=== PATIENT | female | born 1985 | race Caucasian/White ===

== ENCOUNTER 2024-06-15 12:10 | Emergency (ER) | payer OTHER, SELFPAY ==
[2024-06-15 12:25] VITALS: BP 120/74; PULSE 80; RESP 16; TEMP 37.1; O2SAT 100
--- NOTE | 2024-06-15 12:50 | ED_ITS ---
HPI - URI/Sore Throat General Chief Complaint: Upper Respiratory Infection Stated Complaint: cold symptoms Time Seen by Provider: 06/15/24 12:50 Source: patient and RN notes reviewed Mode of arrival: ambulatory Limitations: no limitations History of Present Illness HPI Narrative: 38 y/o female presented for c/o nasal congestion, sinus pressure, ear fullness, and cough x2 weeks. Endorses dizziness, even while sleeping. Taking otc meds without relief. Denies sob, wheezing,n/v/d/f/c. MD elicited complaint: cough Related Data Allergies Allergy/AdvReac Type Severity Reaction Status Date / Time prednisone Allergy Unknown Unknown Verified 06/15/24 12:49 Review of Systems Review of Systems: per HPI Exam Narrative: GENERAL: mildly Ill-appearing, nontoxic no acute distress. EYES: PERRLA, conjunctivae clear ENT: Mucous membranes moist. TM pearly christina with dull light reflex bilaterally; no tragal tenderness. Oropharynx not erythematous without lesions or exudate, no drooling, no hoarseness, no trismus, uvula midline. No tripod positioning, muffled voice, soft palate or pharyngeal wall bulging NECK: Supple. No lymphadenopathy CHEST: Clear to auscultation, breath sounds equal. No wheezing, rhonchi, rales, or stridor. No respiratory distress, speaks in full sentences. HEART: Regular rate and rhythm. No murmur heard. SKIN: Warm, dry, no rash. NEURO: Alert and oriented x3. PSYCH: Normal mood and affect Course Course Emergency Course: Patient is aware of diagnosis, understands and agrees to treatment plan. Anticipatory guidance given. Patient agrees to follow-up as directed and is aware of reasons to seek care at the emergency department. Portions of this record may have been created with voice recognition software Level of Care: Express Care Visit Vital Signs Vital signs: Vital Signs Temperature 98.7 F 06/15/24 12:25 Pulse Rate 80 06/15/24 12:25 Respiratory Rate 16 06/15/24 12:25 Blood Pressure 120/74 06/15/24 12:25 Pulse Oximetry 100 06/15/24 12:25 Oxygen Delivery Room Air 06/15/24 12:25 Temperature 98.7 F 06/15/24 12:25 Pulse Rate 80 06/15/24 12:25 Respiratory Rate 16 06/15/24 12:25 Blood Pressure 120/74 06/15/24 12:25 Pulse Oximetry 100 06/15/24 12:25 Oxygen Delivery Room Air 06/15/24 12:25 reviewed MDM - URI/Sore Throat MDM Narrative Medical decision making narrative: Flu and COVID negative Discussed physical exam findings. Advised supportive measures and signs/symptoms to go to the ER. Pt is appropriate for outpt treatment and f/u. Differential Diagnosis Differential diagnosis: Likely upper respiratory infection, otitis media, sinusitis, viral infection, bronchitis, influenza and pharyngitis Lab Data Labs: Lab Results 06/15/24 Range/Units 12:51 POC Influenza A Ag Negative (Negative) POC Influenza B Ag Negative (Negative) POC SARS CoV-2 Ag Negative (Negative) Discharge Plan Discharge Clinical Impression: Upper respiratory infection Qualifiers: URI type: unspecified URI Qualified Code(s): J06.9 - Acute upper respiratory infection, unspecified Patient Disposition: Home, Self-Care Condition: Stable Instructions: Antibiotic Form, Rhinosinusitis (ED) Additional Instructions: Recommend Flonase spray and Zyrtec (or Claritin/[place]) over the counter Cough syrup may cause drowsiness; avoid driving or take it at night time. Tylenol 1000mg every 8 hours as needed for pain Symptomatic treatment includes: rest, fluids, and increase humidity of the air at home. Follow up with your primary care provider in 1 week. Go to the ER for worsening symptoms or concerns. Patient Language: Dominican Prescriptions: New amoxicillin-pot clavulanate 875-125 mg tablet 1 tablet PO Q12H 7 Days Qty: 14 0RF Follow-up/Referrals: Kristy,Maurizio Dominguez MD [Primary Care Provider] - Time of Disposition: 13:25
[2024-06-15 12:53] LABS: EDCOVIDSCREEN Negative (Negative); EDINFLUASCREEN Negative (Negative); EDINFLUBSCREEN Negative (Negative)
== END 2024-06-15 13:31 | disposition home or self-care (01) ==
PROVIDERS: Emergency Provider Nurse Practitioner Family; PCP Family Medicine
DX: J06.9 Acute upper respiratory infection, unspecified (principal); Z20.822 Contact with and (suspected) exposure to COVID-19
CPT/HCPCS: 87426; 87804; 99213; G0463

== ENCOUNTER 2025-06-19 09:16 | Outpatient (CLI) | payer OTHER, SELFPAY ==
--- NOTE | ~2025-06-19 | MMUS_ITS ---
EXAMINATION: MM diagnostic marilin BI w olu, US breast BI limited HISTORY: Palpable abnormality on the left. Scarring in the lateral left breast from pediatric lung surgery. TECHNIQUE: Craniocaudal and mediolateral oblique 3-D tomosynthesis images were obtained and synthetic 2-D images were generated. CAD analysis was submitted and interpreted. Grayscale sonography over the area(s) of interest with color Doppler if there is a finding. COMPARISON: 2023 BREAST PARENCHYMAL COMPOSITION: Dense: The breasts are extremely dense, which may obscure noncalcified lesions. MAMMOGRAM FINDINGS: There are findings consistent with the known breast cysts. No suspicious masses are seen mammographically. There are no suspicious calcifications. Architectural distortion medially on the right is stable. No unexplained architectural distortion is seen. There are no skin or nipple abnormalities identified. There is no adenopathy seen on the images submitted. ULTRASOUND FINDINGS: In the palpable area on the left 1:00, there are multiple cysts seen. The largest measures 2.0 cm in greatest diameter. These appear to be simple cysts. In the palpable area at 4:00, there is a simple cyst with a maximum dimension of 1.5 cm. Other simple cysts are also noted incidentally. There is a macrolobulated hypoechoic mass at 3:00 on the right. Maximum dimension is 7 mm. This area is not evaluated on the prior ultrasound. I believe it may relate to some dilated tubular structures in the dense tissue about this region. This representing a complex cyst cannot be excluded. A similar sonographic appearance to the breast tissue is seen from the prior study. At 3:00 on the right, there is a 4 mm cyst contains low-level echoes, likely secondary to small size. IMPRESSION: Extremely dense tissue with multiple benign findings. Regarding the structure at 3:00 in the right, benignancy cannot be proven, and ultrasound-guided aspiration/possible core biopsy is recommended. In addition, the right axilla should be scanned prior to the procedure to evaluate for adenopathy. BI-RADS 4 - Suspicious for malignancy. Tissue diagnosis is recommended. Reviewed, dictated and finalized at location A. [employer] IMPRESSION: Extremely dense tissue with multiple benign findings. Regarding the structure a t 3:00 in the right, benignancy cannot be proven, and ultrasound-guided aspirat ion/possible core biopsy is recommended. In addition, the right axilla should b e scanned prior to the procedure to evaluate for adenopathy. BI-RADS 4 - Suspicious for malignancy. Tissue diagnosis is recommended.
== END 2025-06-19 09:17 | disposition home or self-care (01) ==
LOC: MICIMG 09:18
PROVIDERS: PCP Obstetrics & Gynecology; Visit Provider Obstetrics & Gynecology
DX: N63.25 Unspecified lump in the left breast, overlapping quadrants (principal); N63.10 Unspecified lump in the right breast, unspecified quadrant; N63.20 Unspecified lump in the left breast, unspecified quadrant
CPT/HCPCS: 76642; 77062; 77066; G0279